=== PATIENT | female | born 1990 | race Asian ===

== ENCOUNTER → 2018-07-30 | Outpatient (CLI) | payer OTHER | LOC: BMCIMAGING 12:46 | PROVIDERS: ATTEND Internal Medicine | DX: R10.13 Epigastric pain (principal) ==

== ENCOUNTER → 2018-08-02 | Outpatient (CLI) | payer OTHER | LOC: BMCIMAGING 07:09 | PROVIDERS: ATTEND Internal Medicine | DX: R10.13 Epigastric pain (principal); R13.10 Dysphagia, unspecified ==